=== PATIENT | male | born 1985 | race Two or more races ===

== ENCOUNTER 2017-04-19 18:53 | Emergency (ER) | payer OTHER ==
--- NOTE | 2017-04-19 19:02 | CPEKG ---
Heart Rate: 76 RR Interval: 789 P-R Interval: 192 QRSD Interval: 88 QT Interval: 368 QTC Interval: 414 P [place]: 42 QRS [place]: 61 T Wave [place]: 47 EKG Severity - NORMAL ECG - EKG Impression: SINUS RHYTHM Electronically Signed By: Samuel Alfred 19-Apr-2017 19:47:23
[2017-04-19] MEDS ORDERED: NS 1,000 ML IV ONE (19:03)
--- NOTE | 2017-04-19 19:14 | EDPHY ---
H & P Time Seen by Provider: 04/19/17 19:08 HPI/ROS: HPI: Mr. Damon is a 31 yr, male who presents with Chief Complaint: Syncope Location: Head Quality: Witnessed syncope and collapse Duration: 30 minutes prior to arrival Signs and Symptoms: + right eyebrow laceration, no headache, no fever,+ dizziness, no nausea, no vomiting, no chest pain, no palpitations, no abdominal pain, seizure activity Timing: Sudden, resolved Severity: Moderate Context: Patient works for a [employer]. Patient was standing in the barrow, started to feel warm feeling, then felt dizziness described as lightheaded, denies vertigo. Went to slump down onto the floor and the next thing he remembers he was waking up on the floor. Employees witnessed syncopal episode in positive loss of consciousness. No incontinence. No seizure activity. Patient was close to the floor when he hit the right side of his head. Denies headache, ear pain, neck pain. EMS was called and patient transported to the ER. Patient reports a similar incident happened approximately 2 years ago while he was at his friend's house standing outside; describes the same lightheaded warm feeling; slumped up against the car ; witnessed again; loss of consciousness for several seconds. And he describes he had another episode that happened approximately a year prior to that. Patient had a mild GI bug that he describes as 2-3 times per day diarrhea 1 week ago that resolved on Saturday. Patient has been eating and drinking normally since that time. Denies recreational drug use. Modifying Factors: Comment: ROS: Eyes: No blurred vision Respiratory: No shortness of breath, no cough Cardiovascular: No chest pain Gastrointestinal: No nausea, no vomiting no diarrhea Genitourinary: No dysuria Extremities: No myalgias Neurologic: No weakness, no numbness Skin: No rashes Hematologic: No bruising, no bleeding MEDICAL/SURGICAL HISTORY: Asthma. Denies any surgical history. Social History: Employed. Denies tobacco use. Smoking Status: Never smoked Physical Exam: CONSTITUTIONAL: Adult male pleasant and cooperative, interactive, awake and alert, no obvious distress HEENT: 0.5 inch superficial linear laceration to right eyebrow; no active bleeding and normocephalic, PERRL, EOMI. Tympanic membranes clear. Oropharynx clear, no exudate and moist pink mucosa. Airway patent. No lymphadenopathy. No meningismus. No carotid bruits appreciated. Cardiovascular: Normal S1/S2, regular rate, regular rhythm, without murmur rub or gallop. PULMONARY/CHEST: Symmetrical and nontender. Clear to auscultation bilaterally Good air movement. No accessory muscle usage. ABDOMEN: Soft, nondistended, nontender, no rebound, no guarding, no peritoneal signs, no masses or organomegaly. No CVAT. EXTREMITIES: 2/2 pulses, no deformities, no clubbing, no cyanosis or edema. NEUROLOGICAL: no focal neuro deficits. GCS 15. Number cerebellar testing. SKIN: Warm and dry, no erythema. no rash. Good capillary refill. Constitutional: Initial Vital Signs Temperature (C) 37 C 04/19/17 19:03 Heart Rate 74 04/19/17 19:03 Respiratory Rate 20 04/19/17 19:03 Blood Pressure 125/71 H 04/19/17 19:03 O2 Sat (%) 95 04/19/17 19:03 O2 Delivery Mode Room Air Allergies/Adverse Reactions: No Known Allergies Allergy (Unverified 04/19/17 19:28) Home Medications: Medication Instructions Recorded Advair 100/50 (*) 04/19/17 Proair Hfa 04/19/17 Medical Decision Making - Diagnostics EKG Interpretation: 12 lead EKG: Indication: syncope Rhythm: Normal sinus rhythm, rate 76 bpm [place]: Normal Intervals: Normal QRS: Normal ST segments: Normal INTERPRETATION: Normal EKG The 12 lead EKG was interpreted by myself. no prior EKGs to compare. Imaging Results: Imaging Impressions Head CT 04/19/17 19:04 Impression: Normal brain. No acute intracranial hemorrhage or mass. Findings discussed with Emergency Department physician's teacher's assistant, Randee Esteban, at 1930 hours 04/19/2017. ED Course/Re-evaluation: Head CT scan, labs, IV fluids, orthostatics, urinalysis Placed on manager cardiac FSBS 123 right eyebrow abrasion does not require suture or surgical glue; clean with mild soap water and bacitracin applied No signs of arrhythmia, acute coronary syndrome, electrolyte imbalance, orthostatic hypotension, seizure disorder, thyroid disease, acute kidney injury , pulmonary embolism, heart block. Patient will need a Holter monitor outpatient Differential Diagnosis: Syncope including but not limited to vasovagal syncope, arrhythmia, dehydration , and blood loss. [place] syncope Rule is low risk (no CHF history hematocrit normal EKG normal no shortness of breath and SBP >90) Called by radiologist and Head CT scan is negative for any acute intracranial process Orthostatics normal - Data Points Laboratory Results: Laboratory Results 04/19/17 19:10 04/19/17 19:10 04/19/17 04/19/17 04/19/17 19:44 19:25 19:10 WBC RBC Hgb Hct MCV MCH MCHC RDW Plt Count MPV Neut % (Auto) Lymph % (Auto) [place] % (Auto) Eos % (Auto) Baso % (Auto) Nucleat RBC Rel Count Absolute Neuts (auto) Absolute Lymphs (auto) Absolute Monos (auto) Absolute Eos (auto) Absolute Basos (auto) Absolute Nucleated RBC Immature Gran % Immature Gran # PT 12.9 SEC SEC REJ (12.0-15.0) INR 0.98 REJ (0.83-1.16) APTT 26.1 SEC SEC REJ (23.0-38.0) D-Dimer < 0.27 ug/mLFEU ug/mLFEU (0.00-0.50) Sodium 140 mEq/L mEq/L (134-144) Potassium 4.1 mEq/L mEq/L (3.5-5.2) Chloride 105 mEq/L mEq/L (97-110) Carbon Dioxide 20 mEq/l L mEq/l (22-31) Anion Gap 15 mEq/L mEq/L (8-16) BUN 14 mg/dL mg/dL (7-23) Creatinine 1.0 mg/dL mg/dL (0.7-1.3) Estimated GFR > 60 Glucose 117 mg/dL H mg/dL (70-100) Calcium 9.7 mg/dL mg/dL (8.5-10.4) Magnesium 2.0 mg/dL mg/dL (1.6-2.3) Creatine Kinase 89 IU/L IU/L (0-224) Troponin I < 0.012 ng/mL ng/mL (0.000-0.034) TSH 0.635 uIU/mL uIU/mL (0.465-4.680) 04/19/17 04/19/17 19:10 19:03 WBC 8.23 10^3/uL 10^3/uL (3.80-9.50) RBC 5.12 10^6/uL 10^6/uL (4.40-6.38) Hgb 16.1 g/dL g/dL (13.7-17.5) Hct 46.4 % % (40.0-51.0) MCV 90.6 fL fL (81.5-99.8) MCH 31.4 pg pg (27.9-34.1) MCHC 34.7 g/dL g/dL (32.4-36.7) RDW 12.1 % % (11.5-15.2) Plt Count 352 10^3/uL 10^3/uL (150-400) MPV 9.2 fL fL (8.7-11.7) Neut % (Auto) 42.9 % % (39.3-74.2) Lymph % (Auto) 40.2 % % (15.0-45.0) [place] % (Auto) 6.4 % % (4.5-13.0) Eos % (Auto) 9.4 % H % (0.6-7.6) Baso % (Auto) 0.7 % % (0.3-1.7) Nucleat RBC Rel Count 0.0 % % (0.0-0.2) Absolute Neuts (auto) 3.53 10^3/uL 10^3/uL (1.70-6.50) Absolute Lymphs (auto) 3.31 10^3/uL H 10^3/uL (1.00-3.00) Absolute Monos (auto) 0.53 10^3/uL 10^3/uL (0.30-0.80) Absolute Eos (auto) 0.77 10^3/uL H 10^3/uL (0.03-0.40) Absolute Basos (auto) 0.06 10^3/uL 10^3/uL (0.02-0.10) Absolute Nucleated RBC 0.00 10^3/uL 10^3/uL (0-0.01) Immature Gran % 0.4 % % (0.0-1.1) Immature Gran # 0.03 10^3/uL 10^3/uL (0.00-0.10) PT REJ INR REJ APTT D-Dimer Sodium Potassium Chloride Carbon Dioxide Anion Gap BUN Creatinine Estimated GFR Glucose Calcium Magnesium Creatine Kinase Troponin I TSH Medications Given: Discontinued Medications Sodium Chloride (Ns) 1,000 mls @ 0 mls/hr IV ONCE ONE; Wide Open PRN Reason: Protocol Stop: 04/19/17 19:04 Last Admin: 04/19/17 19:27 Dose: 1,000 mls Departure - Departure Disposition: Home, Routine, Self-Care Clinical Impression: Abrasion of right eyebrow Qualifiers: Encounter type: initial encounter Qualified Code(s): S00.211A - Abrasion of right eyelid and periocular area, initial encounter Syncope Qualifiers: Syncope type: unspecified Qualified Code(s): R55 - Syncope and collapse Condition: Good Instructions: Syncope (ED) Additional Instructions: The need to follow up with her primary care provider [facility]or Cardiology for a Holter monitor to evaluate for arrhythmias. Patient please his primary care provider's name is Dr. Nay Laureano. Referrals: Cristian Castorena MD [Medical Doctor] - 5-7 days, call for appt. (Needs Holter monitor referral)
[2017-04-19 19:16] LABS: % IMMATURE GRANULYOCYTES 0.4 % (0.0-1.1); ABSOLUTE IMMATURE GRANULOCYTES 0.03 10^3/uL (0.00-0.10); ADD DIFF? NO; ADD MORPH? NO; ADD SCAN? NO; ATYPICAL LYMPHOCYTE FLAG 10 (0-99); FRAGMENT RBC FLAG 0 (0-99); HEMATOCRIT 46.4 % (40.0-51.0); HEMOGLOBIN 16.1 g/dL (13.7-17.5); LEFT SHIFT FLG 0 (0-99); LIPEMIA HEMOLYSIS FLAG 90 (0-99); MEAN CELL HEMOGLOBIN 31.4 pg (27.9-34.1); MEAN CELL HEMOGLOBIN CONCENTR. 34.7 g/dL (32.4-36.7); MEAN CELL VOLUME 90.6 fL (81.5-99.8); MEAN PLATELET VOLUME 9.2 fL (8.7-11.7); PLATELET CLUMPS FLAG 0 (0-99); PLATELET COUNT 352 10^3/uL (150-400); RED BLOOD CELL COUNT 5.12 10^6/uL (4.40-6.38); RED CELL DISTRIBUTION WIDTH 12.1 % (11.5-15.2)
[2017-04-19 19:19] LABS: ANION GAP 15 mEq/L (8-16); CALCIUM 9.7 mg/dL (8.5-10.4); CARBON DIOXIDE 20 mEq/l (22-31); CHLORIDE 105 mEq/L (97-110); GLOMERULAR FILTRATION RATE > 60; GLUCOSE 117 mg/dL (70-100); POTASSIUM 4.1 mEq/L (3.5-5.2); SODIUM 140 mEq/L (134-144)
[2017-04-19 19:31] LABS: TROPONIN I < 0.012 ng/mL (0.000-0.034)
[2017-04-19 20:13] LABS: APTT 26.1 SEC (23.0-38.0); INR 0.98 (0.83-1.16); PROTIME(PATIENT) 12.9 SEC (12.0-15.0)
[2017-04-19 20:36] VITALS: BP 127/63; PULSE 80; RESP 16; TEMP 98.2; O2SAT 96
== END 2017-04-19 20:36 | disposition home or self-care (01) ==
LOC: EDUNIT#
DX: S00.211A Abrasion of right eyelid and periocular area, initial encounter (principal); R55 Syncope and collapse; J45.909 Unspecified asthma, uncomplicated; E86.9 Volume depletion, unspecified; W22.8XXA Striking against or struck by other objects, initial encounter; Y92.89 Other specified places as the place of occurrence of the external cause; Y99.0 Civilian activity done for income or pay; Y93.89 Activity, other specified